=== PATIENT | female | born 1970 | race Caucasian/White ===

== ENCOUNTER 2017-02-25 20:16 | Emergency (ER) | payer OTHER ==
[~2017-02-25] VITALS: Ht 157.5 cm; Wt 66.0 kg
[~2017-02-25 20:16] MED LIST: CIPR500T4 PO; IBUP-1542 PO; NITR-58 PO; PHEN-537 PO
[2017-02-25 20:18] VITALS: Ht 157.5 cm; Wt 66.0 kg
[2017-02-25] MEDS ORDERED: IBUPROFEN 600 MG TAB PO STA (21:52)
--- NOTE | 2017-02-25 22:38 | RADRPT ---
PROCEDURE: X-ray right elbow. CLINICAL INDICATION: Elbow pain. TECHNIQUE: 3 views right elbow. COMPARISON: None FINDINGS: Reference marker over the posterior and medial right elbow. No acute fracture or dislocation. Soft tissues unremarkable. IMPRESSION: No acute fracture. RPTAT: [facility] Physician Esvin Date Time Electronically viewed and signed by Physician Esvin on 02/25/2017 22:38 RS/
--- NOTE | 2017-02-25 22:47 | RADRPT ---
PROCEDURE: XR Shoulder. CLINICAL INDICATION: Left shoulder pain. TECHNIQUE: Two views of the left shoulder. COMPARISON: None available. FINDINGS: There is no fracture or dislocation. The coracoclavicular interval is normal. The joint spaces are preserved. There are no periarticular calcifications. The visualized lung is clear. IMPRESSION: 1. No fracture or dislocation of the left shoulder. RPTAT: HTAR .Renaldo Saldaña MD, MD Date Time Electronically viewed and signed by .Renaldo Saldaña MD, on 02/25/2017 22:47 .R/
[2017-02-25] MEDS ORDERED: NAPR-260 PO (22:58)
--- NOTE | 2017-02-25 23:31 | ERD ---
ER Documentation Chief Complaint Date/Time DATE: 02/25/17 TIME: 23:28 Chief Complaint right arm pain x 3 days HPI This is a 46-year-old female presenting to the emergency department complaining of right lateral elbow tenderness for the past 3 days. Patient rates the pain 8 out of 10 and increases with supination and pronation. Patient denies any trauma, injury. She denies any fevers. She states that she took Advil this morning without any relief ROS All systems reviewed and are negative except as per history of present illness. Medications Home Meds Active Scripts Naproxen* (Naprosyn*) 500 Mg Tablet, 500 MG PO BID Y for PAIN AND/OR INFLAMMATION, #30 TAB Prov:IGNACIO DENTON PA-C 02/25/17 Nitrofurantoin Monohyd Macrocr* (Macrobid*) 100 Mg Capsr, 100 MG PO BID for 7 Days, CAP Prov:Lora Carvajal PA-C 08/25/16 Phenazopyridine Hcl* (Pyridium*) 100 Mg Tab, 100 MG PO TID, #9 TAB 0 Refills Prov:WILBERT STILL PA-C 10/30/15 Ciprofloxacin Hcl* (Ciprofloxacin Hcl*) 500 Mg Tablet, 500 MG PO BID, #20 TAB 0 Refills Prov:WILBERT STILL PA-C 10/30/15 Reported Medications Ibuprofen* (Ibuprofen*) 600 Mg Tablet, 600 MG PO Q6 04/13/13 [None] No Conflict Check 05/14/10 Allergies Allergies: Coded Allergies: No Known Drug Allergy (Verified Allergy, Mild, 10/30/15) PMhx/Soc History of Surgery: No Anesthesia Reaction: No Hx Neurological Disorder: No Hx Respiratory Disorders: No Hx Cardiac Disorders: No Hx Psychiatric Problems: No Hx Miscellaneous Medical Probl: No Hx Alcohol Use: No Hx Substance Use: No Hx Tobacco Use: No Physical Exam Vitals Vital Signs Date Time Temp Pulse Resp B/P Pulse Ox O2 Delivery O2 Flow Rate FiO2 02/25/17 20:18 97.8 72 20 138/82 100 Physical Exam General: WD/WN, in no apparent distress, non-toxic appearing HENT: NC/AT Eyes: Conjunctiva normal Neck: Supple Pulm: Clear to auscultation, normal labored breathing; no wheezing/rales/ rhonchi heard CV: Good capillary refill GI: Non-distended, no guarding Back: No masses Ext: Tenderness to palpation in the right lateral tendon, full range of motion, no erythema or induration noted Neuro: Moves on all fours Skin: intact Psych: Normal mood Results 24 hrs Current Medications Medications (Trade) Dose Ordered Sig/Tomasa Route PRN Reason Start Time Stop Time Status Last Admin Dose Admin Ibuprofen (Motrin) 600 mg ONCE STAT PO 02/25/17 21:52 02/25/17 21:54 DC 02/25/17 22:47 Procedures/MDM This is a 46-year-old female presenting to the emergency department complaining of right elbow pain for the past 3 days, my differentials include but not limited to tendinitis, sprain. There was no evidence of any septic arthritis, fracture dislocation. An x-ray was done in the ED, radiologist stated unremarkable. While patient was in x-ray room, she states that she wanted an x- ray of her left shoulder due to a fall that she has had previously, x-ray of the left shoulder was done and did not show any evidence of fracture dislocation. Patient did not discuss her left shoulder in the ER room, when I have reassessed her there was no evidence of septic joint, fracture or dislocation. Patient was given ibuprofen in the ED and an Branden bandage for her right elbow. I have discussed for her to follow-up with her primary care physician for further evaluation management. Patient is neurovascular intact and hemodynamically was stable for discharge for home with precautions to return to the ER for any worsening signs or symptoms. She understands and agrees with plan Prescription for naproxen was provided Departure Diagnosis: Primary Impression: Right elbow pain Additional Impression: Right elbow tendinitis Condition: Stable Patient Instructions: Sprain Elbow Additional Instructions: FOLLOW UP WITH YOUR PRIMARY CARE PHYSICIAN TOMORROW.Return to this facility if you are not improving as expected. Take all medicines as directed. Return to this facility if you are not improving as expected. IGNACIO DENTON PA-C February 25, 2017 23:31
[2017-02-26 00:31] VITALS: BP 134/70; PULSE 72; RESP 20; TEMP 98
== END 2017-02-26 00:32 | disposition home or self-care (01) ==
LOC: FTE 20:16
DX: M25.521 Pain in right elbow (principal); M77.8 Other enthesopathies, not elsewhere classified
CPT/HCPCS: 73030; 73080; Z7610